=== PATIENT | female | born 1980 | race Caucasian/White ===

== ENCOUNTER 2017-05-20 08:43 | Emergency (ER) | payer BC ==
[~2017-05-20] VITALS: Ht 167.6 cm; Wt 106.0 kg
[~2017-05-20 08:43] MED LIST: Z.0.NO CURRENT MEDS; ZITH250T PO
[2017-05-20 08:47] VITALS: BP 124/83; PULSE 104; RESP 16; TEMP 98.8; O2SAT 98
[2017-05-20] MEDS ORDERED: ZOLO100T PO (08:57)
[2017-05-20] MEDS ORDERED: KETOROLAC TROMETHAMINE 30 MG/ML (IVP) VIAL IV PUSH ONE (09:00)
[2017-05-20] MEDS ORDERED: SODIUM CHLOR 0.9% 1000 ML INJ 1,000 ML IV ONE (09:00)
[2017-05-20 09:20] LABS: AUTOMATED NEUTROPHIL # 3.6 TH/MM3 (1.8-7.7); BASOPHIL % 0.6 % (0.0-2.0); EOSINOPHIL # 0.2 TH/MM3 (0-0.4); EOSINOPHIL % 4.1 % (0.0-4.0); HEMATOCRIT 39.8 % (35.0-46.0); HEMOGLOBIN 12.9 GM/DL (11.6-15.3); LYMPH % 23.7 % (9.0-44.0); LYMPHOCYTE # 1.4 TH/MM3 (1.0-4.8); MEAN CELL VOLUME 81.6 FL (80.0-100.0); MEAN CORPUSCULAR HEMOGLOBIN 26.4 PG (27.0-34.0); MEAN CORPUSCULAR HGB CONC 32.3 % (32.0-36.0); MEAN PLATELET VOLUME 7.4 FL (7.0-11.0); MONO % 10.9 % (0.0-8.0); MONOCYTE # 0.6 TH/MM3 (0-0.9); NEUT % 60.7 % (16.0-70.0); PLATELET COUNT 327 TH/MM3 (150-450); RED BLOOD COUNT 4.88 MIL/MM3 (4.00-5.30); RED CELL DISTRIBUTION WIDTH 14.3 % (11.6-17.2); WHITE BLOOD COUNT 5.8 TH/MM3 (4.0-11.0)
--- NOTE | 2017-05-20 09:41 | RADRPT ---
EXAM DATE/TIME: 05/20/2017 09:26 [place] COMPARISON: No previous studies available for comparison. INDICATIONS : Cough, short of breath, congestion, MEDICAL HISTORY : asthma SURGICAL HISTORY : None. ENCOUNTER: Initial ACUITY: 1 week PAIN SCORE: 0/10 LOCATION: Bilateral chest FINDINGS: PA and lateral views of the chest demonstrate the lungs to be symmetrically aerated without evidence of mass, infiltrate or effusion. The cardiomediastinal contours are unremarkable. Osseous structure s are intact. CONCLUSION: No acute disease. Ayaz Mcleod MD FACR on May 20, 2017 at 9:39 Board Certified Radiologist. This report was verified electronically.
[2017-05-20 09:48] LABS: CALCIUM 8.9 MG/DL (8.5-10.1)
[2017-05-20 09:49] LABS: ALBUMIN 3.2 GM/DL (3.4-5.0); BICARBONATE 25.5 MEQ/L (21.0-32.0); GLUCOSE,RANDOM 109 MG/DL (74-106)
[2017-05-20 09:52] LABS: ALT (GPT) 31 U/L (10-53); CREATININE 0.74 MG/DL (0.50-1.00); GLOMERULAR FILTRATION RATE 88 ML/MIN (>89)
[2017-05-20 09:54] LABS: AST (GOT) 26 U/L (15-37); CHLORIDE 105 MEQ/L (98-107); SODIUM (NA) 140 MEQ/L (136-145); TOTAL BILIRUBIN ADULT 0.4 MG/DL (0.2-1.0); TOTAL PROTEIN 7.7 GM/DL (6.4-8.2)
[2017-05-20 09:55] LABS: ALKALINE PHOSPHATASE 118 U/L (45-117)
[2017-05-20 09:59] LABS: BLOOD UREA NITROGEN 9 MG/DL (7-18)
--- NOTE | 2017-05-20 10:15 | PD ---
HPI Chief Complaint: Cold / Flu Symptoms Time Seen by Provider: 08:55 Travel History International Travel<30 days: No Contact w/Intl Traveler<30days: No Traveled to known affect area: No History of Present Illness HPI Patient is a 37-year-old female comes in complaining of cough, congestion, sore throat. She says the symptoms have been going on for the past week, and now her throat feels like it is swollen. She denies fever or chills. She says that her symptoms have been triggering her asthma, and she has been using albuterol as needed. She denies any chest pain, nausea, vomiting. She denies any difficulty breathing. PFSH Past Medical History Hx Anticoagulant Therapy: No Asthma: Yes Anxiety: Yes Cardiovascular Problems: No Cerebrovascular Accident: No Diabetes: No Diminished Hearing: No Respiratory: Yes (ASTHMA) Immunizations Current: No Tetanus Vaccination: < 5 Years Influenza Vaccination: Yes ?: Not : 2 Para: 1 : 1 Past Surgical History Section: Yes (2004) Other Surgery: Yes (ABLASION UTEREN) Social History Alcohol Use: No Tobacco Use: No Substance Use: No Allergies-Medications (Allergen,Severity, Reaction): Coded Allergies: No Known Allergies (Verified Adverse Reaction, Unknown, 05/20/17) Reported Meds & Prescriptions Reported Meds & Active Scripts Active Reported Zoloft (Sertraline HCl) 100 Mg Tab 100 Mg PO DAILY Review of Systems Except as stated in HPI: all other systems reviewed are Neg General / Constitutional: No: Fever, Chills HENT: Positive: Sore Throat, Congestion, No: Headaches, Lightheadedness Cardiovascular: No: Chest Pain or Discomfort Respiratory: Positive: Cough, No: Shortness of Breath Gastrointestinal: No: Nausea Musculoskeletal: No: Myalgias Skin: No Rash, No Change in Pigmentation Neurologic: No: Weakness, Dizziness Physical Exam Narrative GENERAL: Awake and alert, in no acute distress. SKIN: Focused skin assessment warm/dry. HEAD: Atraumatic. Normocephalic. EYES: Pupils equal and round. No scleral icterus. No injection or drainage. ENT: Mild tonsillar enlargement, no exudates. Uvula midline. Mucous membranes pink and moist. NECK: Trachea midline. No JVD. CARDIOVASCULAR: Regular rate and rhythm. No murmur appreciated. RESPIRATORY: No accessory muscle use. Clear to auscultation. Breath sounds equal bilaterally. GASTROINTESTINAL: Abdomen soft, non-tender, nondistended. MUSCULOSKELETAL: No obvious deformities. No clubbing. No cyanosis. No edema. NEUROLOGICAL: Awake and alert. No obvious cranial nerve deficits. Motor grossly within normal limits. Normal speech. PSYCHIATRIC: Appropriate mood and affect; insight and judgment normal. Data Data Last Documented VS Vital Signs Date Time Temp Pulse Resp B/P (MAP) Pulse Ox O2 Delivery O2 Flow Rate FiO2 05/20/17 08:54 Room Air 05/20/17 08:47 98.8 104 16 124/83 (97) 98 Orders Orders Iv Access Insert/Monitor (05/20/17 08:59) Complete Blood Count With Diff (05/20/17 08:59) Comprehensive Metabolic Panel (05/20/17 08:59) Group A Rapid Strep Screen (05/20/17 08:59) Influenzae A/B Antigen (05/20/17 08:59) Chest, Pa & Lat (05/20/17 ) Ed Urine Pregnancytest Poc (05/20/17 08:59) Sodium Chlor 0.9% 1000 Ml Inj (Ns 1000 M (05/20/17 09:00) Ketorolac Inj (Toradol Inj) (05/20/17 09:00) Strep Culture (Group A) (05/20/17 09:10) Labs Laboratory Tests Test 05/20/17 09:10 White Blood Count 5.8 TH/MM3 Red Blood Count 4.88 MIL/MM3 Hemoglobin 12.9 GM/DL Hematocrit 39.8 % Mean Corpuscular Volume 81.6 FL Mean Corpuscular Hemoglobin 26.4 PG Mean Corpuscular Hemoglobin Concent 32.3 % Red Cell Distribution Width 14.3 % Platelet Count 327 TH/MM3 Mean Platelet Volume 7.4 FL Neutrophils (%) (Auto) 60.7 % Lymphocytes (%) (Auto) 23.7 % Monocytes (%) (Auto) 10.9 % Eosinophils (%) (Auto) 4.1 % Basophils (%) (Auto) 0.6 % Neutrophils # (Auto) 3.6 TH/MM3 Lymphocytes # (Auto) 1.4 TH/MM3 Monocytes # (Auto) 0.6 TH/MM3 Eosinophils # (Auto) 0.2 TH/MM3 Basophils # (Auto) 0.0 TH/MM3 CBC Comment DIFF FINAL Differential Comment Blood Urea Nitrogen 9 MG/DL Creatinine 0.74 MG/DL Random Glucose 109 MG/DL Total Protein 7.7 GM/DL Albumin 3.2 GM/DL Calcium Level 8.9 MG/DL Alkaline Phosphatase 118 U/L Aspartate Amino Transf (AST/SGOT) 26 U/L Alanine Aminotransferase (ALT/SGPT) 31 U/L Total Bilirubin 0.4 MG/DL Sodium Level 140 MEQ/L Potassium Level 4.1 MEQ/L Chloride Level 105 MEQ/L Carbon Dioxide Level 25.5 MEQ/L Anion Gap 10 MEQ/L Estimat Glomerular Filtration Rate 88 ML/MIN MDM Medical Decision Making Medical Screen Exam Complete: Yes Emergency Medical Condition: Yes Medical Record Reviewed: Yes Differential Diagnosis URI versus viral syndrome versus influenza versus pharyngitis Narrative Course Patient is a 37-year-old female who comes in complaining of congestion, cough, sore throat. Exam shows mild tonsillar enlargement, no exudates. IV established, labs sent. Labs show no acute abnormalities. Influenza screen is negative. Rapid strep test is negative. Patient given IV fluids and Toradol. She is advised to take [id number] medications for symptomatic relief. Advised to take Tylenol or ibuprofen as needed for pain. Advised follow-up with a primary care doctor. Advised to return to the ED as needed for any worsening symptoms. Diagnosis Primary Impression: Upper respiratory infection Qualified Codes: J06.9 - Acute upper respiratory infection, unspecified; B97.89 - Other viral agents as the cause of diseases classified elsewhere Patient Instructions: General Instructions, Upper Respiratory Infection (ED) Additional Instructions: Take [id number] cold medications as needed for symptomatic relief. Drink plenty of fluids. Take Tylenol or ibuprofen as needed for pain. Follow-up with a primary care doctor. Return to the ED as needed for any worsening symptoms. Disposition: 01 DISCHARGE HOME Condition: Stable Maki Summers MD May 20, 2017 10:15
[2017-05-20 10:52] VITALS: BP 111/71
== END 2017-05-20 11:00 | disposition home or self-care (01) ==
LOC: PHED 08:43
DX: J06.9 Acute upper respiratory infection, unspecified (principal); J45.909 Unspecified asthma, uncomplicated; F41.9 Anxiety disorder, unspecified; Z79.899 Other long term (current) drug therapy
CPT/HCPCS: 71020; 80053; 84703; 85025; 87081; 87804; 87880; 96361; 96374; 99284; J1885; J7030